=== PATIENT | female | born 1965 | race Caucasian/White ===

== ENCOUNTER 2019-07-17 01:03 | Inpatient (IN) ==
[2019-07-17] MEDS ORDERED: Thiamine (B-1) 100 MG in 0.9 % Sodium Chloride 50 ML IVPB ONE (01:22)
[2019-07-17] MEDS ORDERED: MVI, adult with vitamin K 10 ML, Folic Acid 1 MG, Thiamine (B-1) 100 MG in 0.9 % Sodi... IVC ONE (01:22)
[2019-07-17] MEDS ORDERED: Folic Acid 1 MG in 0.9 % Sodium Chloride 50 ML IVPB ONE (01:22)
[2019-07-17] MEDS ORDERED: Mag Hydrox/Al Hydrox/Simeth 30 ML UDC PO PRN (02:28)
[2019-07-17] MEDS ORDERED: Naloxone 0.4 MG/ML INJ IVP PRN (02:28)
[2019-07-17 02:29] LABS: Albumin/Globulin Ratio 1.3 (1.1-2.2); Bilirubin,Indirect 0.4 mg/dL (0.0-1.0); Bilirubin,Total 0.4 mg/dL (0.3-1.0); Globulin 3.1 g/dL (2.4-3.5); Magnesium 2.6 mg/dL (1.6-2.6); Phosphorous 4.3 mg/dL (2.7-4.5); Total Protein 7.1 g/dL (6.4-8.9)
[2019-07-17] MEDS ORDERED: *HR* LORazepam 2 MG/ML VIAL IVP PRN ×2 (02:41)
[2019-07-17] MEDS: *HR* LORazepam 0.5 MG TABLET PO SCH ×2 (03:47→07:51)
[2019-07-17] MEDS: Nicotine 21 MG PATCH.TD24 TD SCH (03:48)
[2019-07-17] MEDS ORDERED: *HR* LORazepam 2 MG/ML VIAL IVP ONE (05:18)
[2019-07-17] MEDS: *HR* Heparin 5,000 UNIT/ML VIAL SQ SCH ×2 (05:28→17:27)
[2019-07-17 06:50] LABS: Basophils # 0.1 K/mcL (0.0-0.2); Basophils % 0.5 %; Eosinophils # 0.2 K/mcL (0.0-0.6); Eosinophils % 1.7 %; Hematocrit 41.5 % (35.3-44.9); Hemoglobin 13.3 g/dL (11.5-15.4); Immature Granulocytes % 0.4 % (0-4); Lymphocytes # 3.4 K/mcL (0.6-4.6); Lymphocytes % 33.7 %; Mean Corpuscular Hemoglobin 30.5 pg (28.0-33.3); Mean Corpuscular Volume 95.2 fL (83.0-100.0); Mean Platelet Volume 9.3 fL (9.4-12.4); Monocytes # 0.9 K/mcL (0.0-1.3); Monocytes % 9.2 %; Neutrophils # 5.5 K/mcL (1.6-8.9); Platelet Count 371 K/mcL (140-400); Red Blood Count 4.36 M/mcL (3.82-4.97); Red Cell Distribution Width 14.5 % (11.5-14.5); Segmented Neutrophils % 54.5 %
[2019-07-17 06:53] LABS: INR 0.9; Prothrombin Time 10.7 Seconds (9.4-12.1)
[2019-07-17 07:14] LABS: Albumin 4.1 g/dL (3.5-5.7); Albumin/Globulin Ratio 1.5 (1.1-2.2); Bilirubin,Total 0.4 mg/dL (0.3-1.0); Globulin 2.8 g/dL (2.4-3.5); Potassium 4.4 mEq/L (3.5-5.1); Total Protein 6.9 g/dL (6.4-8.9)
[2019-07-17] MEDS: *HR* Promethazine 25 MG/ML VIAL IVP PRN (07:51)
[2019-07-17] MEDS: Thiamine (B-1) 100 MG TABLET PO SCH (07:51)
[2019-07-17] MEDS: Folic Acid 1 MG TABLET PO SCH (07:51)
[2019-07-17] MEDS: *HR* LORazepam 2 MG/ML VIAL IVP PRN ×2 (08:45→18:32)
[2019-07-17] MEDS ORDERED: cloNIDine HCL 0.1 MG TABLET PO PRN (09:24)
[2019-07-17 10:09] LABS: Amphetamine Screen,Urine Negative ng/mL (Cutoff=1000); Barbiturate Screen,Urine Negative ng/mL (Cutoff=200); Benzodiazepines Screen,Urine Negative ng/mL (Cutoff=200); Cannabinoid Screen,Urine Negative ng/mL (Cutoff = 50); Cocaine Screen,Urine Positive ng/mL (Cutoff= 300); Opiate Screen,Urine Negative ng/mL (Cutoff=300); Phencyclidine Screen,Urine Negative ng/mL (Cutoff=25)
[2019-07-17] MEDS: amLODIPine 5 MG TABLET PO SCH (11:51)
[2019-07-17] MEDS: FLUoxetine HCl 10 MG CAPSULE PO SCH (11:51)
[2019-07-17] MEDS: Acetaminophen 325 MG TABLET PO PRN (18:29)
[2019-07-18 02:44] LABS: Basophils # 0.1 K/mcL (0.0-0.2); Basophils % 0.8 %; Eosinophils # 0.3 K/mcL (0.0-0.6); Eosinophils % 2.8 %; Hematocrit 42.5 % (35.3-44.9); Hemoglobin 13.9 g/dL (11.5-15.4); Immature Granulocytes % 0.3 % (0-4); Lymphocytes # 3.9 K/mcL (0.6-4.6); Lymphocytes % 38.2 %; Mean Corpuscular HGB Conc 32.7 g/dL (31.6-35.5); Mean Corpuscular Hemoglobin 31.1 pg (28.0-33.3); Mean Corpuscular Volume 95.1 fL (83.0-100.0); Monocytes # 0.8 K/mcL (0.0-1.3); Monocytes % 7.6 %; Neutrophils # 5.1 K/mcL (1.6-8.9); Platelet Count 341 K/mcL (140-400); Red Blood Count 4.47 M/mcL (3.82-4.97); Red Cell Distribution Width 14.4 % (11.5-14.5); Segmented Neutrophils % 50.3 %; White Blood Count 10.1 K/mcL (4.3-11.1)
[2019-07-18 03:02] LABS: Alanine Aminotransferase 27 Units/L (7-52); Albumin 3.7 g/dL (3.5-5.7); Albumin/Globulin Ratio 1.3 (1.1-2.2); Alkaline Phosphatase 100 Units/L (34-104); Aspartate Amino Transferase 33 Units/L (13-39); BUN/Creatinine Ratio 45 (6-26); Bilirubin,Direct 0.1 mg/dL (0.0-0.2); Bilirubin,Indirect 0.7 mg/dL (0.0-1.0); Bilirubin,Total 0.8 mg/dL (0.3-1.0); Blood Urea Nitrogen 38 mg/dL (6-20); Calcium 9.3 mg/dL (8.6-10.3); Carbon Dioxide 27 mEq/L (23-29); Chloride 102 mEq/L (98-107); Globulin 2.8 g/dL (2.4-3.5); Glucose 121 mg/dL (70-105); Magnesium 2.4 mg/dL (1.6-2.6); Osmolality,Calculated 296 (280-300); Phosphorous 3.8 mg/dL (2.7-4.5); Potassium 4.1 mEq/L (3.5-5.1); Sodium 138 mEq/L (136-145); Total Protein 6.5 g/dL (6.4-8.9); eGFR For African Americans > 60 (> 60); eGFR For Non-African Americans > 60 (> 60)
[2019-07-18] MEDS: *HR* Heparin 5,000 UNIT/ML VIAL SQ SCH ×2 (05:33→16:18)
[2019-07-18] MEDS ORDERED: QUEtiapine Fumarate 25 MG TABLET PO SCH ×2 (08:00→21:00)
[2019-07-18] MEDS: Thiamine (B-1) 100 MG TABLET PO SCH (08:54)
[2019-07-18] MEDS: Folic Acid 1 MG TABLET PO SCH (08:54)
[2019-07-18] MEDS: FLUoxetine HCl 10 MG CAPSULE PO SCH (08:54)
[2019-07-18] MEDS: amLODIPine 5 MG TABLET PO SCH (08:54)
[2019-07-18] MEDS: Nicotine 21 MG PATCH.TD24 TD SCH (08:54)
[2019-07-18] MEDS: Acetaminophen 325 MG TABLET PO PRN (11:26)
[2019-07-18] MEDS ORDERED: methocarbamoL 500 MG TABLET PO ONE (19:19)
[2019-07-18] MEDS: methocarbamoL 500 MG TABLET PO PRN (23:37)
[2019-07-19] MEDS ORDERED: rOPINIRole 0.25 MG TABLET PO SCH (01:00)
[2019-07-19] MEDS: *HR* Promethazine 25 MG/ML VIAL IVP PRN (04:32)
[2019-07-19] MEDS: *HR* Heparin 5,000 UNIT/ML VIAL SQ SCH (06:33)
[2019-07-19] MEDS: Acetaminophen 325 MG TABLET PO PRN (06:36)
[2019-07-19] MEDS ORDERED: QUEtiapine Fumarate 25 MG TABLET PO SCH (06:52)
[2019-07-19] MEDS: *HR* LORazepam 2 MG/ML VIAL IVP PRN (07:03)
[2019-07-19] MEDS: Thiamine (B-1) 100 MG TABLET PO SCH (07:59)
[2019-07-19] MEDS: methocarbamoL 500 MG TABLET PO PRN (07:59)
[2019-07-19] MEDS: Folic Acid 1 MG TABLET PO SCH (08:00)
[2019-07-19] MEDS: Nicotine 21 MG PATCH.TD24 TD SCH (08:00)
[2019-07-19] MEDS: FLUoxetine HCl 10 MG CAPSULE PO SCH (08:02)
[2019-07-19] MEDS: amLODIPine 5 MG TABLET PO SCH (08:02)
[2019-07-19] MEDS ORDERED: cloNIDine HCL 0.1 MG TABLET PO ONE (10:19)
[2019-07-19 14:47] VITALS: BP 140/78
== END 2019-07-19 16:27 | DRG 885 ==
LOC: 3BNU 01:03 → EMEROOARM 01:03 → SUATTDRO 02:25 → 3BNU 02:54 → SUATTDRO 13:55
PROVIDERS: ADMIT Family Medicine; ATTEND Internal Medicine

== ENCOUNTER 2019-07-19 16:15 | Inpatient (IN) ==
[2019-07-19] MEDS ORDERED: Haloperidol Lactate 5 MG/ML VIAL IM PRN (16:33)
[2019-07-19] MEDS ORDERED: Mag Hydrox/Al Hydrox/Simeth 30 ML UDC PO PRN (16:33)
[2019-07-19] MEDS ORDERED: *HR* LORazepam 2 MG/ML VIAL IM PRN (16:33)
[2019-07-19] MEDS ORDERED: MOM Conc 10 ML UD.LIQ PO PRN (16:33)
[2019-07-19] MEDS ORDERED: Ondansetron ODT 4 MG TAB.RAPDIS SL PRN (16:35)
[2019-07-19] MEDS ORDERED: cloNIDine HCL 0.1 MG TABLET PO PRN (16:36)
[2019-07-19] MEDS: QUEtiapine Fumarate 100 MG TABLET PO SCH (20:46)
[2019-07-19] MEDS: Nicotine 14 MG PATCH.TD24 TD SCH (20:46)
[2019-07-19] MEDS: Ibuprofen 400 MG TABLET PO PRN (20:47)
[2019-07-19] MEDS: hydrOXYzine pamoate 25 MG CAPSULE PO PRN (20:47)
[2019-07-19] MEDS: Baclofen 10 MG TABLET PO PRN (21:59)
[2019-07-19] MEDS: QUEtiapine Fumarate 25 MG TABLET PO PRN (21:59)
[2019-07-19] MEDS: *HR* LORazepam 1 MG TABLET PO PRN (23:02)
[2019-07-19] MEDS: haloperidoL 5 MG TABLET PO PRN (23:02)
[2019-07-20] MEDS: Ibuprofen 400 MG TABLET PO PRN ×3 (02:23→22:40)
[2019-07-20] MEDS: hydrOXYzine pamoate 25 MG CAPSULE PO PRN (02:23)
[2019-07-20] MEDS: haloperidoL 5 MG TABLET PO PRN (03:34)
[2019-07-20] MEDS: *HR* LORazepam 1 MG TABLET PO PRN (03:34)
[2019-07-20] MEDS: Nicotine 14 MG PATCH.TD24 TD SCH ×2 (11:21→13:15)
[2019-07-20] MEDS: Folic Acid 1 MG TABLET PO SCH ×2 (11:21→13:13)
[2019-07-20] MEDS: Thiamine (B-1) 100 MG TABLET PO SCH ×2 (11:22→13:12)
[2019-07-20] MEDS: FLUoxetine 20 MG CAPSULE PO SCH ×2 (11:22→13:12)
[2019-07-20] MEDS: amLODIPine 5 MG TABLET PO SCH ×2 (11:22→13:13)
[2019-07-20] MEDS: QUEtiapine Fumarate 25 MG TABLET PO PRN ×2 (20:25→23:26)
[2019-07-20] MEDS: Baclofen 10 MG TABLET PO PRN (20:25)
[2019-07-20] MEDS: QUEtiapine Fumarate 100 MG TABLET PO SCH (20:25)
[2019-07-21] MEDS: *HR* LORazepam 1 MG TABLET PO PRN (02:12)
[2019-07-21] MEDS: haloperidoL 5 MG TABLET PO PRN (02:12)
[2019-07-21] MEDS: Baclofen 10 MG TABLET PO PRN (02:13)
[2019-07-21] MEDS: amLODIPine 5 MG TABLET PO SCH (11:11)
[2019-07-21] MEDS: Folic Acid 1 MG TABLET PO SCH (11:11)
[2019-07-21] MEDS: FLUoxetine 20 MG CAPSULE PO SCH (11:11)
[2019-07-21] MEDS: Nicotine 14 MG PATCH.TD24 TD SCH (11:11)
[2019-07-21] MEDS: Thiamine (B-1) 100 MG TABLET PO SCH (11:11)
[2019-07-21] MEDS: Ibuprofen 400 MG TABLET PO PRN (11:41)
[2019-07-21] MEDS: Acetaminophen 325 MG TABLET PO PRN ×2 (16:26→22:28)
[2019-07-21] MEDS: QUEtiapine Fumarate 100 MG TABLET PO SCH (20:09)
[2019-07-21] MEDS: rOPINIRole 1 MG TABLET PO SCH (20:09)
[2019-07-22] MEDS: QUEtiapine Fumarate 25 MG TABLET PO PRN ×2 (00:17→22:29)
[2019-07-22] MEDS: Ibuprofen 400 MG TABLET PO PRN ×2 (05:55→12:53)
[2019-07-22] MEDS: FLUoxetine 20 MG CAPSULE PO SCH (08:44)
[2019-07-22] MEDS: Thiamine (B-1) 100 MG TABLET PO SCH (08:44)
[2019-07-22] MEDS: Folic Acid 1 MG TABLET PO SCH (08:44)
[2019-07-22] MEDS: Nicotine 14 MG PATCH.TD24 TD SCH (08:44)
[2019-07-22] MEDS: amLODIPine 5 MG TABLET PO SCH (08:44)
[2019-07-22] MEDS ORDERED: FLUoxetine 20 MG CAPSULE PO ONE (12:00)
[2019-07-22] MEDS: QUEtiapine Fumarate 100 MG TABLET PO SCH (20:05)
[2019-07-22] MEDS: Acetaminophen 325 MG TABLET PO PRN (20:06)
[2019-07-22] MEDS: rOPINIRole 1 MG TABLET PO SCH (20:08)
[2019-07-23] MEDS: Ibuprofen 400 MG TABLET PO PRN (07:20)
[2019-07-23] MEDS: Thiamine (B-1) 100 MG TABLET PO SCH (08:59)
[2019-07-23] MEDS: amLODIPine 5 MG TABLET PO SCH (09:00)
[2019-07-23] MEDS: Folic Acid 1 MG TABLET PO SCH (09:00)
[2019-07-23] MEDS ORDERED: FLUoxetine 20 MG CAPSULE PO SCH (09:00)
[2019-07-23] MEDS: Nicotine 14 MG PATCH.TD24 TD SCH (09:02)
[2019-07-23 10:16] VITALS: BP 118/80
== END 2019-07-23 13:10 | disposition home or self-care (01) | DRG 885 ==
LOC: 1ANU 16:15
PROVIDERS: ADMIT Psychiatry & Neurology Psychiatry; ATTEND Psychiatry & Neurology Psychiatry

== ENCOUNTER 2020-03-24 21:02 | Inpatient (IN) ==
[2020-03-24] MEDS ORDERED: Ketorolac 15 MG/ML VIAL IVP ONE (21:26)
[2020-03-24] MEDS ORDERED: Ondansetron 4 MG/2 ML VIAL IVP ONE (21:26)
[2020-03-25] MEDS ORDERED: Acetaminophen 325 MG TABLET PO ONE (00:42)
[2020-03-25] MEDS ORDERED: Mag Hydrox/Al Hydrox/Simeth 30 ML UDC PO PRN (06:09)
[2020-03-25] MEDS ORDERED: *HR* LORazepam 1 MG TABLET PO PRN (06:09)
[2020-03-25] MEDS ORDERED: traZODone 50 MG TABLET PO PRN (06:09)
[2020-03-25] MEDS ORDERED: haloperidoL 5 MG TABLET PO PRN (06:09)
[2020-03-25] MEDS ORDERED: *HR* LORazepam 2 MG/ML VIAL IM PRN (06:09)
[2020-03-25] MEDS ORDERED: Haloperidol Lactate 5 MG/ML VIAL IM PRN (06:09)
[2020-03-25] MEDS ORDERED: MOM Conc 10 ML UD.LIQ PO PRN (06:09)
[2020-03-25] MEDS: FLUoxetine 20 MG CAPSULE PO SCH (11:20)
[2020-03-25] MEDS: Lisinopril-HCTZ 20-12.5mg TABLET PO SCH (11:21)
[2020-03-25] MEDS: amLODIPine 5 MG TABLET PO SCH (11:21)
[2020-03-25] MEDS: Acetaminophen 325 MG TABLET PO PRN ×2 (13:41→20:25)
[2020-03-25] MEDS: QUEtiapine Fumarate 25 MG TABLET PO SCH (20:24)
[2020-03-25] MEDS: hydrOXYzine pamoate 25 MG CAPSULE PO PRN (20:24)
[2020-03-26] MEDS: hydrOXYzine pamoate 25 MG CAPSULE PO PRN ×2 (04:01→20:33)
[2020-03-26] MEDS: FLUoxetine 20 MG CAPSULE PO SCH (09:18)
[2020-03-26] MEDS: amLODIPine 5 MG TABLET PO SCH (09:36)
[2020-03-26] MEDS: Lisinopril-HCTZ 20-12.5mg TABLET PO SCH (09:36)
[2020-03-26] MEDS: Ibuprofen 800 MG TABLET PO PRN ×2 (09:45→18:21)
[2020-03-26] MEDS: QUEtiapine Fumarate 25 MG TABLET PO SCH (20:33)
[2020-03-26] MEDS: Acetaminophen 325 MG TABLET PO PRN (22:18)
[2020-03-26] MEDS: QUEtiapine Fumarate 25 MG TABLET PO PRN (22:19)
[2020-03-27] MEDS ORDERED: rOPINIRole 1 MG TABLET PO ONE (00:53)
[2020-03-27] MEDS: amLODIPine 5 MG TABLET PO SCH (09:26)
[2020-03-27] MEDS: Lisinopril-HCTZ 20-12.5mg TABLET PO SCH (09:26)
[2020-03-27] MEDS: Acetaminophen 325 MG TABLET PO PRN (09:27)
[2020-03-27] MEDS: Ibuprofen 800 MG TABLET PO PRN ×2 (14:21→23:02)
[2020-03-27] MEDS: rOPINIRole 1 MG TABLET PO SCH (20:27)
[2020-03-27] MEDS: QUEtiapine Fumarate 25 MG TABLET PO SCH (20:27)
[2020-03-27] MEDS: QUEtiapine Fumarate 25 MG TABLET PO PRN (23:02)
[2020-03-28] MEDS: Acetaminophen 325 MG TABLET PO PRN ×2 (09:06→20:22)
[2020-03-28] MEDS: Lisinopril-HCTZ 20-12.5mg TABLET PO SCH (09:07)
[2020-03-28] MEDS: amLODIPine 5 MG TABLET PO SCH (09:07)
[2020-03-28] MEDS: BuPROPion XL (24 HR) 150 MG TABLET PO SCH (09:38)
[2020-03-28] MEDS ORDERED: rOPINIRole 1 MG TABLET PO STA (13:57)
[2020-03-28] MEDS: Ibuprofen 800 MG TABLET PO PRN (15:37)
[2020-03-28] MEDS: QUEtiapine Fumarate 100 MG TABLET PO PRN (20:22)
[2020-03-28] MEDS: hydrOXYzine pamoate 25 MG CAPSULE PO PRN (20:22)
[2020-03-28] MEDS: rOPINIRole 1 MG TABLET PO SCH (20:22)
[2020-03-29] MEDS: amLODIPine 5 MG TABLET PO SCH (08:42)
[2020-03-29] MEDS: Lisinopril-HCTZ 20-12.5mg TABLET PO SCH (08:42)
[2020-03-29] MEDS: BuPROPion XL (24 HR) 150 MG TABLET PO SCH (08:43)
[2020-03-29] MEDS: Ibuprofen 800 MG TABLET PO PRN ×2 (08:45→16:30)
[2020-03-29] MEDS: hydrOXYzine pamoate 25 MG CAPSULE PO PRN (20:35)
[2020-03-29] MEDS: QUEtiapine Fumarate 100 MG TABLET PO PRN (20:35)
[2020-03-29] MEDS: rOPINIRole 1 MG TABLET PO SCH (20:35)
[2020-03-30] MEDS: Ibuprofen 800 MG TABLET PO PRN (03:31)
[2020-03-30] MEDS: BuPROPion XL (24 HR) 150 MG TABLET PO SCH (09:32)
[2020-03-30] MEDS: amLODIPine 5 MG TABLET PO SCH (09:33)
[2020-03-30] MEDS: Lisinopril-HCTZ 20-12.5mg TABLET PO SCH (09:33)
[2020-03-30 09:37] VITALS: BP 115/77
== END 2020-03-30 12:15 | disposition home or self-care (01) | DRG 885 ==
LOC: EMEROOARM 21:02 → 1ANU 03-25 06:00 → SUATTDRO 03-25 06:03 → 1ANU 03-25 06:03
PROVIDERS: ADMIT Psychiatry & Neurology Psychiatry; ATTEND Psychiatry & Neurology Psychiatry